=== PATIENT | female | born 1960 | race Caucasian/White ===

== ENCOUNTER → 2018-04-10 | Day surgery (SDC) | payer OTHER ==
--- NOTE | 2018-04-11 18:53 | PATH ---
Cytology Non-Gynecological Report Patient Name: YANIQUE WESLEY [facility]. Rec. #: [id number] /Age/Gender: 1960 (Age: 57) / F Account: [id number] Location: RADIOLOGY [facility]AS Taken: 04/10/2018 Received: 04/10/2018 Reported: 04/11/2018 Physicians: Kali Espinoza D.O. Specimen(s) Received BREAST,ULTRA SOUND GUIDED FNA Clinical History Breast, 0.7 cm, complicated cyst Final Diagnosis BREAST, LEFT, 9:00, ULTRASOUND GUIDED FINE NEEDLE ASPIRATION: SATISFACTORY FOR EVALUATION. NO MALIGNANT CELLS IDENTIFIED. CYSTIC LESION WITH APOCRINE METAPLASIA. APOCRINE METAPLASTIC CELLS, SCANT PROTEINACEOUS DEBRIS, AND RARE FIBROADIPOSE TISSUE PRESENT. Comment: Findings are best seen in the cell block material. Recommend correlation with clinical findings and follow up as clinically indicated. Electronically Signed Yanique Nichols M.D. Gross Description Approximately 50 cc of bloody fluid received fixed in 50% alcohol. Two cytofunnels and one cellblock prepared.
== END | disposition home or self-care (01) ==
LOC: JRADUS-SUR 09:59
PROVIDERS: ATTEND Student in an Organized Health Care Education/Training Program
PROC: BH41ZZZ Ultrasonography of Left Breast (ICD-10-PCS; principal; 2018-04-10)
PROC: 0H9U3ZX Drainage of Left Breast, Percutaneous Approach, Diagnostic (ICD-10-PCS; 2018-04-10)
DX: N60.02 Solitary cyst of left breast (principal)
CPT/HCPCS: 76942-TC; 88173; 88305-TC